=== PATIENT | male | born 1985 | race Caucasian/White ===

== ENCOUNTER 2016-12-04 17:54 | Inpatient (IN) | payer OTHER ==
[~2016-12-04] VITALS: Ht 160 cm; Wt 45.9 kg
[2016-12-04 22:00] VITALS: BP 96/58; PULSE 78; RESP 18
[2016-12-04 23:00] VITALS: Ht 160 cm; Wt 45.9 kg
[2016-12-04] MEDS ORDERED: PSYLLIUM 28% PACKET PO PRN (23:30)
[2016-12-04] MEDS ORDERED: POLYETHYLENE GLYCOL 17 GM PACKET PO PRN (23:30)
[2016-12-04] MEDS ORDERED: TEMAZEPAM 7.5 MG CAP PO PRN (23:30)
[2016-12-04] MEDS ORDERED: MAGNESIUM HYDROXIDE 30ML CUP PO PRN (23:45)
[2016-12-04] MEDS ORDERED: ACETAMINOPHEN 325 MG TAB PO PRN (23:45)
[2016-12-04] MEDS ORDERED: SENNA/DOCUSATE NA (8.6MG/50MG) TAB PO PRN (23:45)
[2016-12-04] MEDS ORDERED: BISACODYL 10 MG SUPP PR PRN (23:45)
[2016-12-04] MEDS ORDERED: LEVALBUTEROL (NEB) 1.25 MG/0.5 ML AMP INH PRN (23:45)
[2016-12-04] MEDS: HYDROCODONE/APAP (5/325) TAB PO PRN (23:55)
[2016-12-04] MEDS: MEROPENEM 1 GM/100 ML (PMX) 100 ML IVPB SCH (23:57)
[2016-12-04] MEDS: SODIUM CHLORIDE 1 GM TAB PO SCH (23:58)
[2016-12-04] MEDS: GABAPENTIN 300 MG CAP PO SCH (23:58)
[2016-12-05 01:11] LABS: ADD UMIC YES; URINE BILIRUBIN (Dip) NEGATIVE (NEGATIVE); URINE BLOOD (Dip) TRACE (NEGATIVE); URINE COLOR LT. YELLOW (YELLOW); URINE GLUCOSE (Dip) NEGATIVE (NEGATIVE); URINE KETONES (Dip) NEGATIVE (NEGATIVE); URINE LEUKOCYTE ESTERASE (Dip) NEGATIVE (NEGATIVE); URINE NITRITE (Dip) NEGATIVE (NEGATIVE); URINE TOTAL PROTEIN (Dip) NEGATIVE (NEGATIVE); URINE UROBILINOGEN (Dip) 0.2 E.U./dL (0.1-1.0)
[2016-12-05 01:33] LABS: SQUAMOUS EPITHELIAL CELL,UR RARE; URINE RBCS 0-2 /HPF (0)
[2016-12-05 06:37] LABS: ADD SCAN DIFF NO
[2016-12-05] MEDS: HYDROCODONE/APAP (5/325) TAB PO PRN ×2 (06:44→21:52)
[2016-12-05 06:46] LABS: HEMATOCRIT 30.7 % (42.0-52.0); HEMOGLOBIN 10.1 g/dl (14.0-18.0); MEAN CORPUSCULAR HEMOGLOBIN 29.8 pg (29.0-33.0); MEAN CORPUSCULAR HGB CONC 32.9 g/dl (32.0-37.0); MEAN CORPUSCULAR VOLUME 90.6 fl (82.0-101.0); MEAN PLATELET VOLUME 9.5 fl (7.4-10.4); PLATELET COUNT 875 10^3/UL (140-415); RED BLOOD COUNT 3.39 10^6/ul (4.70-6.10); RED CELL DISTRIBUTION WIDTH 13.1 % (11.5-14.5); WHITE BLOOD COUNT 7.1 10^3/ul (4.8-10.8)
[2016-12-05 07:00] LABS: ALBUMIN 2.8 g/dl (3.3-4.9)
[2016-12-05 07:01] LABS: POTASSIUM 4.1 mmol/L (3.5-5.1)
[2016-12-05 07:03] LABS: ALBUMIN/GLOBULIN RATIO 0.9; BILIRUBIN,INDIRECT 0.2 mg/dl (0-1.1); BILIRUBIN,TOTAL 0.2 mg/dl (0.2-1.3); CALCIUM 8.3 mg/dl (8.4-10.2); CREATININE 0.78 mg/dl (0.61-1.24); TOTAL PROTEIN 5.9 g/dl (6.1-8.1)
[2016-12-05 08:00] VITALS: BP 96/56; PULSE 82; RESP 18
[2016-12-05] MEDS: SODIUM CHLORIDE 1 GM TAB PO SCH ×3 (09:09→20:30)
[2016-12-05] MEDS: ENOXAPARIN 30 MG/0.3 ML SYG SC SCH ×3 (09:09→20:33)
[2016-12-05] MEDS: ASPIRIN 81 MG TAB PO SCH (09:09)
[2016-12-05] MEDS: GABAPENTIN 300 MG CAP PO SCH ×3 (09:09→20:30)
[2016-12-05] MEDS: MEROPENEM 1 GM/100 ML (PMX) 100 ML IVPB SCH ×2 (10:42→20:34)
[2016-12-05 10:45] LABS: BASOPHIL # 0.3 10^3/ul (0.0-0.1); EOSINOPHILS # 0.2 10^3/ul (0.0-0.5); LYMPHOCYTES # 1.9 10^3/ul (0.8-2.9); MONOCYTE # 0.9 10^3/ul (0.3-0.9); MYELOCYTES # 0.1; NEUTROPHIL # 3.6 10^3/ul (1.6-7.5)
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
[2016-12-05 20:00] VITALS: BP 101/56; RESP 18
[2016-12-06] MEDS: HYDROCODONE/APAP (5/325) TAB PO PRN ×3 (02:12→21:22)
[2016-12-06 08:00] VITALS: BP 92/57; RESP 18
[2016-12-06] MEDS ORDERED: BISACODYL 10 MG SUPP PR SCH (09:00)
[2016-12-06] MEDS: BISACODYL 10 MG SUPP PR SCH (09:00)
[2016-12-06] MEDS: ASPIRIN 81 MG TAB PO SCH (09:23)
[2016-12-06] MEDS: SODIUM CHLORIDE 1 GM TAB PO SCH ×3 (09:24→20:22)
[2016-12-06] MEDS: GABAPENTIN 300 MG CAP PO SCH ×3 (09:25→20:22)
[2016-12-06] MEDS: ENOXAPARIN 30 MG/0.3 ML SYG SC SCH ×2 (09:27→21:21)
[2016-12-06] MEDS: MEROPENEM 1 GM/100 ML (PMX) 100 ML IVPB SCH ×2 (10:09→20:22)
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
[2016-12-06 19:40] VITALS: BP 101/61; RESP 18
[2016-12-07] MEDS: HYDROCODONE/APAP (5/325) TAB PO PRN ×4 (01:21→21:16)
[2016-12-07 07:30] VITALS: BP 81/52; RESP 18
[2016-12-07] MEDS: ASPIRIN 81 MG TAB PO SCH (08:33)
[2016-12-07] MEDS: SODIUM CHLORIDE 1 GM TAB PO SCH ×3 (08:33→20:53)
[2016-12-07] MEDS: GABAPENTIN 300 MG CAP PO SCH ×3 (08:33→20:53)
[2016-12-07] MEDS: MEROPENEM 1 GM/100 ML (PMX) 100 ML IVPB SCH ×2 (08:33→21:36)
[2016-12-07] MEDS: BISACODYL 10 MG SUPP PR SCH (08:33)
[2016-12-07] MEDS: ENOXAPARIN 30 MG/0.3 ML SYG SC SCH ×2 (08:44→20:57)
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
[2016-12-07 20:00] VITALS: BP 98/53; RESP 18
[2016-12-08] MEDS: HYDROCODONE/APAP (5/325) TAB PO PRN ×4 (01:33→21:47)
[2016-12-08] MEDS: BISACODYL 10 MG SUPP PR SCH (09:50)
[2016-12-08] MEDS: GABAPENTIN 300 MG CAP PO SCH ×3 (09:50→21:43)
[2016-12-08] MEDS: SODIUM CHLORIDE 1 GM TAB PO SCH ×3 (09:50→21:43)
[2016-12-08] MEDS: ASPIRIN 81 MG TAB PO SCH (09:50)
[2016-12-08] MEDS: ENOXAPARIN 30 MG/0.3 ML SYG SC SCH ×2 (10:01→21:45)
[2016-12-08] MEDS: MEROPENEM 1 GM/100 ML (PMX) 100 ML IVPB SCH ×2 (10:09→21:43)
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
[2016-12-08 20:00] VITALS: BP 94/60; RESP 18
[2016-12-09] MEDS: HYDROCODONE/APAP (5/325) TAB PO PRN ×2 (02:21→21:40)
[2016-12-09 07:30] VITALS: BP 103/64; RESP 18
[2016-12-09] MEDS: BISACODYL 10 MG SUPP PR SCH ×2 (09:00→14:07)
[2016-12-09] MEDS: MEROPENEM 1 GM/100 ML (PMX) 100 ML IVPB SCH (09:14)
[2016-12-09] MEDS: SODIUM CHLORIDE 1 GM TAB PO SCH ×3 (09:15→21:38)
[2016-12-09] MEDS: GABAPENTIN 300 MG CAP PO SCH (09:15)
[2016-12-09] MEDS: ASPIRIN 81 MG TAB PO SCH (09:18)
[2016-12-09] MEDS: ENOXAPARIN 30 MG/0.3 ML SYG SC SCH ×2 (09:18→21:40)
[2016-12-09] MEDS: GABAPENTIN 400 MG CAP PO SCH ×2 (12:12→21:38)
[2016-12-09 20:45] VITALS: BP 101/64; RESP 19
[2016-12-10] MEDS: HYDROCODONE/APAP (5/325) TAB PO PRN ×2 (02:55→22:36)
[2016-12-10 07:30] VITALS: BP 86/54; RESP 18
[2016-12-10 07:59] LABS: ADD SCAN DIFF NO
[2016-12-10 08:04] LABS: BASOPHIL # 0.1 10^3/ul (0.0-0.1); BASOPHILS % 1.3 % (0.0-2.0); EOSINOPHILS # 0.1 10^3/ul (0.0-0.5); EOSINOPHILS % 1.3 % (0.0-7.0); HEMATOCRIT 32.5 % (42.0-52.0); HEMOGLOBIN 10.4 g/dl (14.0-18.0); LYMPHOCYTES # 2.6 10^3/ul (0.8-2.9); LYMPHOCYTES % 38.6 % (15.0-51.0); MEAN CORPUSCULAR HEMOGLOBIN 29.4 pg (29.0-33.0); MEAN CORPUSCULAR VOLUME 91.8 fl (82.0-101.0); MEAN PLATELET VOLUME 9.4 fl (7.4-10.4); MONOCYTE # 0.7 10^3/ul (0.3-0.9); MONOCYTES % 9.6 % (0.0-11.0); NEUTROPHIL # 3.3 10^3/ul (1.6-7.5); NEUTROPHILS % 48.6 % (39.0-77.0); PLATELET COUNT 676 10^3/UL (140-415); RED BLOOD COUNT 3.54 10^6/ul (4.70-6.10); RED CELL DISTRIBUTION WIDTH 13.1 % (11.5-14.5); WHITE BLOOD COUNT 6.8 10^3/ul (4.8-10.8)
[2016-12-10] MEDS: ASPIRIN 81 MG TAB PO SCH (09:13)
[2016-12-10] MEDS: GABAPENTIN 400 MG CAP PO SCH ×3 (09:13→20:57)
[2016-12-10] MEDS: BISACODYL 10 MG SUPP PR SCH (09:13)
[2016-12-10] MEDS: SODIUM CHLORIDE 1 GM TAB PO SCH ×3 (09:13→20:57)
[2016-12-10] MEDS: ENOXAPARIN 30 MG/0.3 ML SYG SC SCH ×2 (09:14→20:58)
--- NOTE | 2016-12-10 12:22 | CONS ---
Date/Time of Note Date/Time of Note DATE: 12/10/16 TIME: 12:20 Consult Date/Type/Reason Admit Date/Time Dec 04, 2016 at 20:42 Initial Consult Date Type of Consultation: internal medicine Objective Vital Signs Date Time Temp Pulse Resp B/P Pulse Ox O2 Delivery O2 Flow Rate FiO2 12/09/16 20:45 97.8 75 19 101/64 98 12/06/16 08:00 Room Air Intake and Output 12/09/16 12/09/16 12/10/16 15:00 23:00 07:00 Intake Total 100 ml 1510 ml Output Total 1700 ml 600 ml Balance 100 ml -190 ml -600 ml INTERDISCIPLINARY TEAM CONFERENCE BOWEL- neurogenic bowel BLADDER-neurogenic bladder with cath SKIN- healed sacral decub OT- DRESSING-mod BATHING-mod TOILETING-mod PT- BED MOBILITY-mod TRANSFERS-mod/min with slideboard W.C. MOBILITY-sba A/P- Interdisciplinary team conference held today. Please see interdisciplinary sheet. Working toward d.c. home with post discharge follow up of physical therapy, occupational therapy, and nursing when at modified independent at the wheelchair level, and gait activities tolerated. Reconference in one week. Results/Medications Result Diagram: 12/10/16 0610 Results 24 hrs Laboratory Tests Test 12/10/16 06:10 White Blood Count 6.8 Red Blood Count 3.54 L Hemoglobin 10.4 L Hematocrit 32.5 L Mean Corpuscular Volume 91.8 Mean Corpuscular Hemoglobin 29.4 Mean Corpuscular Hemoglobin Concent 32.0 Red Cell Distribution Width 13.1 Platelet Count 676 #H Mean Platelet Volume 9.4 Neutrophils % 48.6 Lymphocytes % 38.6 Monocytes % 9.6 Eosinophils % 1.3 Basophils % 1.3 Nucleated Red Blood Cells % 0.0 Neutrophils # 3.3 Lymphocytes # 2.6 Monocytes # 0.7 Eosinophils # 0.1 Basophils # 0.1 Nucleated Red Blood Cells # 0.0 Medications Current Medications Temazepam (Restoril) 7.5 mg HS PRN PO INSOMNIA; Start 12/04/16 at 23:30 Polyethylene Glycol (Miralax) 17 gm DAILY PRN PO CONSTIPATION; Start 12/04/16 at 23:30 Psyllium Hydrophilic Mucilloid (Metamucil) 1 pkt TID PRN PO CONSTIPATION; Start 12/04/16 at 23:30 Aspirin (Aspirin) 81 mg DAILY PO Last administered on 12/10/16 09:13; Admin Dose 81 MG; Start 12/05/16 at 09:00 Enoxaparin Sodium (Lovenox) 30 mg BID SC Last administered on 12/10/16 09:14; Admin Dose 30 MG; Start 12/04/16 at 23:30 Sodium Chloride (Nacl) 1 gm TID PO Last administered on 12/10/16 09:13; Admin Dose 1 GM; Start 12/04/16 at 23:30 Cyclobenzaprine HCl (Flexeril) 5 mg BID PRN PO MUSCLE SPASMS; Start 12/04/16 at 23:30 Acetaminophen (Tylenol Tab) 650 mg Q4H PRN PO PAIN AND OR ELEVATED TEMP/OCHOA; Start 12/04/16 at 23:45 Bisacodyl (Dulcolax Supp) 10 mg DAILY PRN [place] CONSTIPATION Last administered on 12/05/16 21:51; Admin Dose 10 MG; Start 12/04/16 at 23:45 Docusate Sodium (Colace) 250 mg BID PRN PO CONSTIPATION; Start 12/04/16 at 23: 45 Acetaminophen/ Hydrocodone Bitart ([place] (5/325)) 2 tab Q4H PRN PO SEVERE PAIN Last administered on 12/10/16 02:55; Admin Dose 2 TAB; Start 12/04/16 at 23:45 Magnesium Hydroxide (Milk Of Mag) 30 ml Q6H PRN PO CONSTIPATION; Start at 23:45 Senna/Docusate Sodium (Senokot-S) 2 tab HS PRN PO CONSTIPATION; Start 12/04/16 at 23:45 Bisacodyl (Dulcolax Supp) 10 mg DAILY [place] Last administered on 12/10/16 09:13; Admin Dose 10 MG; Start 12/06/16 at 09:00 Gabapentin (Neurontin) 400 mg TID PO Last administered on 12/10/16 09:13; Admin Dose 400 MG; Start 12/09/16 at 13:00 KEITH CLEMENS MD December 10, 2016 12:22 KEITH CLEMENS MD December 10, 2016 12:22
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
[2016-12-10 20:30] VITALS: BP 89/49; RESP 18
[2016-12-10 22:00] VITALS: BP 91/58
[2016-12-11] MEDS: HYDROCODONE/APAP (5/325) TAB PO PRN ×4 (02:44→22:22)
[2016-12-11 08:09] VITALS: BP 89/52; RESP 18
[2016-12-11] MEDS: ENOXAPARIN 30 MG/0.3 ML SYG SC SCH ×2 (08:55→20:50)
[2016-12-11] MEDS: SODIUM CHLORIDE 1 GM TAB PO SCH ×3 (08:55→20:49)
[2016-12-11] MEDS: ASPIRIN 81 MG TAB PO SCH (08:55)
[2016-12-11] MEDS: GABAPENTIN 400 MG CAP PO SCH ×3 (08:55→20:49)
[2016-12-11] MEDS: BISACODYL 10 MG SUPP PR SCH (09:47)
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
[2016-12-11 19:43] VITALS: BP 102/65; RESP 20
[2016-12-12] MEDS: HYDROCODONE/APAP (5/325) TAB PO PRN ×3 (02:31→22:02)
[2016-12-12 08:25] VITALS: BP 95/58; RESP 18
[2016-12-12] MEDS: ENOXAPARIN 30 MG/0.3 ML SYG SC SCH ×2 (08:36→20:49)
[2016-12-12] MEDS: ASPIRIN 81 MG TAB PO SCH (08:36)
[2016-12-12] MEDS: GABAPENTIN 400 MG CAP PO SCH ×3 (08:36→20:46)
[2016-12-12] MEDS: SODIUM CHLORIDE 1 GM TAB PO SCH ×3 (08:36→20:46)
[2016-12-12] MEDS: BISACODYL 10 MG SUPP PR SCH (08:36)
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
[2016-12-12] MEDS: CYCLOBENZAPRINE 10 MG TAB PO PRN (11:21)
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
[2016-12-12 20:00] VITALS: BP 107/61; RESP 18
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
[2016-12-13] MEDS: HYDROCODONE/APAP (5/325) TAB PO PRN ×5 (02:10→22:06)
[2016-12-13 07:30] VITALS: BP 83/48; RESP 18
[2016-12-13] MEDS: ENOXAPARIN 30 MG/0.3 ML SYG SC SCH ×2 (09:18→21:09)
[2016-12-13] MEDS: ASPIRIN 81 MG TAB PO SCH (09:33)
[2016-12-13] MEDS: GABAPENTIN 400 MG CAP PO SCH ×2 (09:34→12:17)
[2016-12-13] MEDS: SODIUM CHLORIDE 1 GM TAB PO SCH ×3 (09:34→21:04)
[2016-12-13] MEDS: BISACODYL 10 MG SUPP PR SCH ×2 (09:34→12:52)
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
[2016-12-13] MEDS: CYCLOBENZAPRINE 10 MG TAB PO PRN (12:21)
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
[2016-12-13] MEDS: GABAPENTIN 300 MG CAP PO SCH (21:05)
[2016-12-14] MEDS: HYDROCODONE/APAP (5/325) TAB PO PRN ×2 (02:11→20:45)
[2016-12-14] MEDS: SODIUM CHLORIDE 1 GM TAB PO SCH ×3 (09:18→20:44)
[2016-12-14] MEDS: GABAPENTIN 300 MG CAP PO SCH ×3 (09:18→20:44)
[2016-12-14] MEDS: BISACODYL 10 MG SUPP PR SCH (09:18)
[2016-12-14] MEDS: ASPIRIN 81 MG TAB PO SCH (09:18)
[2016-12-14] MEDS: ENOXAPARIN 30 MG/0.3 ML SYG SC SCH ×2 (09:20→20:46)
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
[2016-12-14] MEDS: PREGABALIN 50 MG CAP PO SCH ×2 (13:13→20:44)
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
[2016-12-14 20:00] VITALS: BP 98/59; RESP 18
[2016-12-15] MEDS: HYDROCODONE/APAP (5/325) TAB PO PRN ×4 (01:30→19:37)
[2016-12-15 07:45] VITALS: BP 76/44; RESP 18
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
[2016-12-15] MEDS: ASPIRIN 81 MG TAB PO SCH (10:10)
[2016-12-15] MEDS: SODIUM CHLORIDE 1 GM TAB PO SCH ×3 (10:10→20:48)
[2016-12-15] MEDS: GABAPENTIN 300 MG CAP PO SCH ×3 (10:11→20:48)
[2016-12-15] MEDS: PREGABALIN 50 MG CAP PO SCH ×2 (10:11→20:48)
[2016-12-15] MEDS: ENOXAPARIN 30 MG/0.3 ML SYG SC SCH ×2 (10:12→20:52)
[2016-12-15] MEDS: BISACODYL 10 MG SUPP PR SCH (10:14)
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
--- NOTE | 2016-12-15 13:39 | PN ---
DATE: 12/15/2016 SUBJECTIVE: The patient has a neurogenic bladder. He is paraplegic. The patient has urinary reten tion requiring straight catheterization. Last time he was catheterized earlier this morning for 300 and another time for another 300. OBJECTIVE: His temperature is 98.7, pulse is 62, respirations 18, blood pressure 76/44. PLAN: The urine culture did show enterococcus and was sensitive to vancomycin and Cipro. I did ord er a urine culture for him and it is still in process. For now, continue to do the straight cathete rization on him every 6 hours or earlier if the bladder scan shows over 600 mL. Dictated By: ADIN GODINEZ/HERNANDEZ Conf#: [id number] DID#: [id number]
[2016-12-15] MEDS: CYCLOBENZAPRINE 10 MG TAB PO PRN (18:41)
[2016-12-15 19:41] VITALS: BP 104/75; RESP 18
[2016-12-15] MEDS: BACLOFEN 10 MG TAB PO SCH (22:28)
[2016-12-15] MEDS: HYDROCODONE/APAP (10/325) TAB PO PRN (23:58)
[2016-12-16] MEDS: HYDROCODONE/APAP (10/325) TAB PO PRN ×3 (06:29→22:51)
[2016-12-16 07:12] LABS: ADD SCAN DIFF NO
[2016-12-16 07:16] LABS: BASOPHIL # 0.1 10^3/ul (0.0-0.1); BASOPHILS % 0.7 % (0.0-2.0); EOSINOPHILS # 0.2 10^3/ul (0.0-0.5); EOSINOPHILS % 3.3 % (0.0-7.0); HEMATOCRIT 35.3 % (42.0-52.0); HEMOGLOBIN 11.3 g/dl (14.0-18.0); LYMPHOCYTES # 2.7 10^3/ul (0.8-2.9); MEAN CORPUSCULAR HEMOGLOBIN 29.5 pg (29.0-33.0); MEAN CORPUSCULAR VOLUME 92.2 fl (82.0-101.0); MEAN PLATELET VOLUME 10.2 fl (7.4-10.4); MONOCYTE # 0.6 10^3/ul (0.3-0.9); NEUTROPHIL # 3.4 10^3/ul (1.6-7.5); NEUTROPHILS % 48.7 % (39.0-77.0); PLATELET COUNT 308 10^3/UL (140-415); RED BLOOD COUNT 3.83 10^6/ul (4.70-6.10); RED CELL DISTRIBUTION WIDTH 13.8 % (11.5-14.5)
[2016-12-16 07:30] VITALS: BP 93/54; RESP 18
[2016-12-16 07:33] LABS: CREATININE 0.77 mg/dl (0.61-1.24); MAGNESIUM 1.7 mg/dl (1.7-2.5); PHOSPHORUS 4.2 mg/dl (2.5-4.9)
[2016-12-16] MEDS: ENOXAPARIN 30 MG/0.3 ML SYG SC SCH ×2 (11:22→21:18)
[2016-12-16] MEDS: PREGABALIN 50 MG CAP PO SCH ×2 (11:22→21:15)
[2016-12-16] MEDS: BISACODYL 10 MG SUPP PR SCH (11:22)
[2016-12-16] MEDS: ASPIRIN 81 MG TAB PO SCH (11:22)
[2016-12-16] MEDS: GABAPENTIN 300 MG CAP PO SCH ×3 (11:22→21:15)
[2016-12-16] MEDS: SODIUM CHLORIDE 1 GM TAB PO SCH ×3 (11:24→21:15)
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
[2016-12-16] MEDS: CIPROFLOXACIN 500 MG TAB PO SCH (18:35)
[2016-12-16] MEDS: BACLOFEN 10 MG TAB PO SCH (21:16)
[2016-12-16 22:17] VITALS: BP 99/63; RESP 18
[2016-12-17] MEDS: HYDROCODONE/APAP (10/325) TAB PO PRN ×5 (02:55→22:51)
--- NOTE | 2016-12-17 03:35 | PN ---
DATE: 12/16/2016 SUBJECTIVE: Urinary retention and neurogenic bladder. The patient is paraplegic. OBJECTIVE: VITAL SIGNS: His temperature is 98.2, pulse 56, respiration 18, blood pressure 93/54. The patient is sitting on the edge of the bed, and he has not been able to urinate. The nurses have catheterized him today. The last time he was catheterized, they drained over 600 mL, and the last catheterization was 536 mL. The patient himself is being taught how to do the self-catheterization. According to the patient as well as the nurse who is taking care of him, he seems to be learning w ell how to do it. I encouraged him to try to do it himself while he is in the hospital so he could gain some practice before he is discharged. Dictated By: ADIN GODINEZ/HERNANDEZ Conf#: [id number] DID#: [id number]
[2016-12-17] MEDS: CIPROFLOXACIN 500 MG TAB PO SCH ×2 (05:46→18:58)
[2016-12-17 07:30] VITALS: BP 85/50; RESP 18
[2016-12-17 08:30] VITALS: BP 110/68
[2016-12-17] MEDS: ASPIRIN 81 MG TAB PO SCH (09:00)
[2016-12-17] MEDS: PREGABALIN 50 MG CAP PO SCH ×2 (10:11→21:07)
[2016-12-17] MEDS: SODIUM CHLORIDE 1 GM TAB PO SCH ×3 (10:11→21:07)
[2016-12-17] MEDS: BACLOFEN 10 MG TAB PO SCH ×3 (10:11→21:07)
[2016-12-17] MEDS: GABAPENTIN 300 MG CAP PO SCH ×3 (10:16→21:07)
[2016-12-17] MEDS: BISACODYL 10 MG SUPP PR SCH (10:16)
[2016-12-17] MEDS: ENOXAPARIN 30 MG/0.3 ML SYG SC SCH ×2 (10:18→21:21)
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
--- NOTE | 2016-12-17 13:31 | CONS ---
Date/Time of Note Date/Time of Note DATE: 12/17/16 TIME: 13:29 Consult Date/Type/Reason Admit Date/Time Dec 04, 2016 at 20:42 Type of Consultation: internal medicine Objective Vital Signs Date Time Temp Pulse Resp B/P Pulse Ox O2 Delivery O2 Flow Rate FiO2 12/17/16 08:30 110/68 12/16/16 22:17 97.8 73 18 98 Intake and Output 12/16/16 12/16/16 12/17/16 15:00 23:00 07:00 Intake Total 1100 ml 280 ml Output Total 550 ml 375 ml Balance 550 ml -95 ml INTERDISCIPLINARY TEAM CONFERENCE BOWEL- results with bowel program BLADDER-started to have some volitional voiding SKIN- healing decub OT- DRESSING-min BATHING-min TOILETING-min (max for supository) PT- BED MOBILITY-min/mod TRANSFERS-cga W.C. MOBILITY-sba A/P- Interdisciplinary team conference held today. Please see interdisciplinary sheet. Working toward d.c. on 12/26 with post discharge follow up of physical therapy, occupational therapy. Results/Medications Result Diagram: 12/16/16 0610 12/16/16 0610 Medications Current Medications Temazepam (Restoril) 7.5 mg HS PRN PO INSOMNIA; Start 12/04/16 at 23:30 Polyethylene Glycol (Miralax) 17 gm DAILY PRN PO CONSTIPATION; Start 12/04/16 at 23:30 Psyllium Hydrophilic Mucilloid (Metamucil) 1 pkt TID PRN PO CONSTIPATION; Start 12/04/16 at 23:30 Aspirin (Aspirin) 81 mg DAILY PO Last administered on 12/16/16 11:22; Admin Dose 81 MG; Start 12/05/16 at 09:00 Enoxaparin Sodium (Lovenox) 30 mg BID SC Last administered on 12/17/16 10:18; Admin Dose 30 MG; Start 12/04/16 at 23:30 Sodium Chloride (Nacl) 1 gm TID PO Last administered on 12/17/16 10:11; Admin Dose 1 GM; Start 12/04/16 at 23:30 Acetaminophen (Tylenol Tab) 650 mg Q4H PRN PO PAIN AND OR ELEVATED TEMP/OCHOA; Start 12/04/16 at 23:45 Bisacodyl (Dulcolax Supp) 10 mg DAILY PRN [place] CONSTIPATION Last administered on 12/05/16 21:51; Admin Dose 10 MG; Start 12/04/16 at 23:45 Docusate Sodium (Colace) 250 mg BID PRN PO CONSTIPATION; Start 12/04/16 at 23: 45 Magnesium Hydroxide (Milk Of Mag) 30 ml Q6H PRN PO CONSTIPATION; Start at 23:45 Senna/Docusate Sodium (Senokot-S) 2 tab HS PRN PO CONSTIPATION; Start 12/04/16 at 23:45 Bisacodyl (Dulcolax Supp) 10 mg DAILY [place] Last administered on 12/17/16 10:16; Admin Dose 10 MG; Start 12/06/16 at 09:00 Gabapentin (Neurontin) 600 mg TID PO Last administered on 12/17/16 10:16; Admin Dose 600 MG; Start 12/13/16 at 21:00 Pregabalin (Lyrica) 50 mg BID PO Last administered on 12/17/16 10:11; Admin Dose 50 MG; Start 12/14/16 at 10:30 Baclofen (Lioresal) 5 mg TID PO Last administered on 12/17/16 10:11; Admin Dose 5 MG; Start 12/16/16 at 22:00 Acetaminophen/ Hydrocodone Bitart ([place] (10/325)) 2 tab Q4H PRN PO PAIN Last administered on 12/17/16 10:23; Admin Dose 2 TAB; Start 12/15/16 at 22:00 Ciprofloxacin (Cipro) 500 mg BID@18 PO Last administered on 12/17/16 05:46; Admin Dose 500 MG; Start 12/16/16 at 18:00 KEITH CLEMENS MD December 17, 2016 13:31
[2016-12-17 19:44] VITALS: BP 120/75; RESP 18
[2016-12-17] MEDS ORDERED: TAMSULOSIN (SR) 0.4 MG CAP PO SCH (21:00)
[2016-12-17] MEDS: TRIMETHOPRIM/SULFAMETHOX (DS) TAB PO SCH (21:10)
[2016-12-18] MEDS: HYDROCODONE/APAP (10/325) TAB PO PRN ×3 (02:59→21:31)
[2016-12-18] MEDS: CIPROFLOXACIN 500 MG TAB PO SCH ×2 (06:27→18:41)
[2016-12-18 07:40] LABS: ADD SCAN DIFF NO; BASOPHIL # 0.1 10^3/ul (0.0-0.1); BASOPHILS % 0.8 % (0.0-2.0); EOSINOPHILS # 0.3 10^3/ul (0.0-0.5); EOSINOPHILS % 3.3 % (0.0-7.0); HEMATOCRIT 33.4 % (42.0-52.0); LYMPHOCYTES # 2.7 10^3/ul (0.8-2.9); LYMPHOCYTES % 30.3 % (15.0-51.0); MEAN CORPUSCULAR HEMOGLOBIN 29.9 pg (29.0-33.0); MEAN CORPUSCULAR HGB CONC 32.9 g/dl (32.0-37.0); MEAN CORPUSCULAR VOLUME 90.8 fl (82.0-101.0); MEAN PLATELET VOLUME 10.3 fl (7.4-10.4); MONOCYTE # 0.7 10^3/ul (0.3-0.9); MONOCYTES % 7.4 % (0.0-11.0); NEUTROPHIL # 5.2 10^3/ul (1.6-7.5); PLATELET COUNT 264 10^3/UL (140-415); RED BLOOD COUNT 3.68 10^6/ul (4.70-6.10); RED CELL DISTRIBUTION WIDTH 13.8 % (11.5-14.5); WHITE BLOOD COUNT 8.9 10^3/ul (4.8-10.8)
[2016-12-18 08:07] LABS: ALBUMIN 3.2 g/dl (3.3-4.9); ALBUMIN/GLOBULIN RATIO 1.1; BILIRUBIN,INDIRECT 0.2 mg/dl (0-1.1); BILIRUBIN,TOTAL 0.2 mg/dl (0.2-1.3); CALCIUM 8.8 mg/dl (8.4-10.2); CREATININE 0.84 mg/dl (0.61-1.24); TOTAL PROTEIN 6.1 g/dl (6.1-8.1)
[2016-12-18] MEDS: TRIMETHOPRIM/SULFAMETHOX (DS) TAB PO SCH ×2 (09:06→20:34)
[2016-12-18] MEDS: BISACODYL 10 MG SUPP PR SCH (09:07)
[2016-12-18] MEDS: PREGABALIN 50 MG CAP PO SCH ×2 (09:07→20:34)
[2016-12-18] MEDS: ASPIRIN 81 MG TAB PO SCH (09:07)
[2016-12-18] MEDS: GABAPENTIN 300 MG CAP PO SCH ×3 (09:07→20:35)
[2016-12-18] MEDS: SODIUM CHLORIDE 1 GM TAB PO SCH ×3 (09:07→20:34)
[2016-12-18] MEDS: BACLOFEN 10 MG TAB PO SCH ×3 (09:07→20:36)
[2016-12-18] MEDS: ENOXAPARIN 30 MG/0.3 ML SYG SC SCH ×2 (09:08→20:43)
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
[2016-12-18 18:26] VITALS: BP 98/63
[2016-12-18] MEDS: DOCUSATE SODIUM 250 MG CAP PO PRN (20:35)
[2016-12-18] MEDS: oxyCODONE (CR) 10 MG TAB [oxyCONTIN] PO SCH (20:36)
[2016-12-18 20:45] VITALS: BP 99/63; RESP 18
[2016-12-19] MEDS: HYDROCODONE/APAP (10/325) TAB PO PRN ×3 (01:40→22:38)
--- NOTE | 2016-12-19 02:18 | PN ---
DATE: 12/18/2016 SUBJECTIVE: The patient has a neurogenic bladder with urinary retention. He was sleepy and he stat es that since they gave him the medications he has been tired and sleepy and basically he got Baclof en and Neurontin. However, the patient did void once today and according to the nursing he did urin ate about 150 mL, but his postvoid residual was 550, so he was straight catheterized and the patient has learned himself how to do the self-catheterization and he is doing well. VITAL SIGNS: His temperature is 97.7. His pulse is 73, respiration 18, blood pressure 120/75. LABORATORY DATA: CBC shows a white count of 8.9, hemoglobin 11.0, hematocrit 33.4. BUN is 17, crea tinine 0.84. Electrolytes are normal. The urine culture from 12/15/2016 did show E. coli and Enter ococcus species and one is sensitive to Cipro, the other one is sensitive to trimethoprim sulfa, so the patient is on both of them. PLAN: To continue the in and out cath and check his postvoid residual and continue the antibiotics. Dictated By: ADIN COLES MD BB/HERNANDEZ Conf#: [id number] DID#: [id number] CC: ADIN COLES MD; KEITH CLEMENS MD;*End*
[2016-12-19] MEDS: CIPROFLOXACIN 500 MG TAB PO SCH ×2 (07:00→18:42)
[2016-12-19 07:31] VITALS: BP 84/48; RESP 18
[2016-12-19] MEDS: GABAPENTIN 300 MG CAP PO SCH ×3 (08:48→20:39)
[2016-12-19] MEDS: SODIUM CHLORIDE 1 GM TAB PO SCH ×3 (08:48→20:40)
[2016-12-19] MEDS: ENOXAPARIN 30 MG/0.3 ML SYG SC SCH ×2 (08:48→20:46)
[2016-12-19] MEDS: ASPIRIN 81 MG TAB PO SCH (08:48)
[2016-12-19] MEDS: oxyCODONE (CR) 10 MG TAB [oxyCONTIN] PO SCH ×2 (08:49→20:40)
[2016-12-19] MEDS: TRIMETHOPRIM/SULFAMETHOX (DS) TAB PO SCH ×2 (08:49→20:39)
[2016-12-19] MEDS: BISACODYL 10 MG SUPP PR SCH (08:49)
[2016-12-19] MEDS: BACLOFEN 10 MG TAB PO SCH ×3 (08:49→20:49)
[2016-12-19] MEDS: PREGABALIN 50 MG CAP PO SCH ×2 (09:28→20:49)
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
[2016-12-19 20:00] VITALS: BP 95/63; RESP 18
[2016-12-20] MEDS: CIPROFLOXACIN 500 MG TAB PO SCH ×2 (06:07→17:33)
[2016-12-20 06:25] VITALS: BP 87/50
[2016-12-20 06:30] VITALS: BP 90/56
[2016-12-20 07:30] VITALS: BP 98/63; RESP 18
[2016-12-20 08:14] LABS: CREATININE 0.88 mg/dl (0.61-1.24)
[2016-12-20] MEDS: oxyCODONE (CR) 10 MG TAB [oxyCONTIN] PO SCH ×2 (09:00→09:12)
[2016-12-20] MEDS: ASPIRIN 81 MG TAB PO SCH (09:00)
[2016-12-20] MEDS: PREGABALIN 50 MG CAP PO SCH ×2 (09:12→21:27)
[2016-12-20] MEDS: TRIMETHOPRIM/SULFAMETHOX (DS) TAB PO SCH ×2 (09:12→21:26)
[2016-12-20] MEDS: SODIUM CHLORIDE 1 GM TAB PO SCH ×3 (09:12→21:26)
[2016-12-20] MEDS: GABAPENTIN 300 MG CAP PO SCH ×3 (09:12→21:26)
[2016-12-20] MEDS: BISACODYL 10 MG SUPP PR SCH (09:13)
[2016-12-20] MEDS: ENOXAPARIN 30 MG/0.3 ML SYG SC SCH ×2 (09:19→21:28)
[2016-12-20 09:40] VITALS: BP 95/62; RESP 18
--- NOTE | 2016-12-20 10:27 | RADRPT ---
PROCEDURE: XR Abdomen. CLINICAL INDICATION: Abdomen pain. Constipation. TECHNIQUE: AP supine abdomen x-ray. COMPARISON: None. FINDINGS: The bowel gas pattern is normal with no evidence of obstruction. There is a large amount of stool i n the colon consistent with constipation. There is a 0.8 cm calcification or density overlying the right upper quadrant of the abdomen. There are no abnormal calcifications overlying the urinary tracts. The osseus structures are unremarkable. IMPRESSION: 1. No evidence of obstruction. 2. Constipation. 3. Calcification or density overlying the right upper quadrant of the abdomen measuring 0.8 cm. Th is may be inside the patient or outside the patient. 4. Otherwise unremarkable study. RPTAT: QQ .Rik Keller MD, MD Date Time Electronically viewed and signed by .Rik Keller MD, on 12/20/2016 10:26 .R/
[2016-12-20] MEDS: HYDROCODONE/APAP (10/325) TAB PO PRN ×3 (11:21→23:08)
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
[2016-12-20] MEDS: BACLOFEN 10 MG TAB PO SCH ×2 (11:57→21:27)
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
[2016-12-20 19:46] VITALS: BP 90/54; RESP 17
[2016-12-20 23:15] VITALS: BP 96/60; PULSE 82; RESP 18
--- NOTE | 2016-12-20 23:56 | PN ---
DATE: 12/20/2016 SUBJECTIVE: The patient has paraplegia, urinary retention secondary to the neurogenic bladder. The patient states that he did void, but a small amount, yet the catheterization after that yielded a l arge amount of urine. OBJECTIVE VITAL SIGNS: His temperature is 97.4, pulse is 66, respirations 17, blood pressure 90/54. ABDOMEN: Soft. The bladder is not distended. LABORATORY DATA: BUN is 17, creatinine 0.88, sodium 134, potassium 4.0, chloride 103, CO2 of 26. T he patient was catheterized 3 times today, and the amount drained was 550, then 340, then 550 mL. IMPRESSION: Neurogenic bladder with urinary retention secondary to the paraplegia that he has. PLAN: The patient has learned how to do self-catheterization, and he will continue to do that. Hop efully, his neurologic condition will improve to where he may be able to urinate adequately on his o wn without the need for catheterization, but for now, he needs to continue doing the intermittent se lf-catheterization. Dictated By: ADIN GODINEZ/HERNANDEZ Conf#: [id number] DID#: [id number]
[2016-12-21] MEDS: HYDROCODONE/APAP (10/325) TAB PO PRN ×5 (03:27→23:12)
[2016-12-21] MEDS: CIPROFLOXACIN 500 MG TAB PO SCH ×2 (06:36→18:24)
[2016-12-21 07:56] VITALS: BP 82/52; RESP 18
[2016-12-21] MEDS: DOCUSATE SODIUM 250 MG CAP PO PRN ×2 (09:19→20:05)
[2016-12-21] MEDS: GABAPENTIN 300 MG CAP PO SCH ×3 (09:19→20:05)
[2016-12-21] MEDS: ASPIRIN 81 MG TAB PO SCH (09:19)
[2016-12-21] MEDS: BACLOFEN 10 MG TAB PO SCH ×2 (09:19→20:06)
[2016-12-21] MEDS: TRIMETHOPRIM/SULFAMETHOX (DS) TAB PO SCH ×2 (09:19→20:05)
[2016-12-21] MEDS: SODIUM CHLORIDE 1 GM TAB PO SCH ×2 (09:20→12:43)
[2016-12-21] MEDS: PREGABALIN 50 MG CAP PO SCH ×2 (09:20→20:05)
[2016-12-21] MEDS: BISACODYL 10 MG SUPP PR SCH (09:20)
[2016-12-21] MEDS: ENOXAPARIN 30 MG/0.3 ML SYG SC SCH ×2 (09:25→20:14)
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
[2016-12-21 20:19] VITALS: BP 98/50; RESP 18
[2016-12-22] MEDS: HYDROCODONE/APAP (10/325) TAB PO PRN ×4 (03:21→13:08)
[2016-12-22] MEDS: CIPROFLOXACIN 500 MG TAB PO SCH (07:03)
[2016-12-22 07:45] VITALS: BP 94/57; PULSE 64; RESP 20
[2016-12-22] MEDS: PREGABALIN 50 MG CAP PO SCH (10:25)
[2016-12-22] MEDS: GABAPENTIN 300 MG CAP PO SCH ×2 (10:25→13:05)
[2016-12-22] MEDS: ASPIRIN 81 MG TAB PO SCH (10:25)
[2016-12-22] MEDS: TRIMETHOPRIM/SULFAMETHOX (DS) TAB PO SCH (10:25)
[2016-12-22] MEDS: BACLOFEN 10 MG TAB PO SCH (10:25)
[2016-12-22] MEDS: BISACODYL 10 MG SUPP PR SCH (10:26)
[2016-12-22] MEDS: ENOXAPARIN 30 MG/0.3 ML SYG SC SCH (10:34)
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
== END 2016-12-22 13:15 | disposition home or self-care (01) | DRG 949 ==
LOC: VRC 20:42
PROVIDERS: ADMIT Physical Medicine & Rehabilitation; ATTEND Internal Medicine Pulmonary Disease
DX: S34.121 Incomplete lesion of L1 level of lumbar spinal cord (principal); G82.22 Paraplegia, incomplete; K59.2 Neurogenic bowel, not elsewhere classified; N31.9 Neuromuscular dysfunction of bladder, unspecified; G62.9 Polyneuropathy, unspecified; K91.3 Postprocedural intestinal obstruction; W34.00XD Accidental discharge from unspecified firearms or gun, subsequent encounter; B95.2 Enterococcus as the cause of diseases classified elsewhere; F06.31 Mood disorder due to known physiological condition with depressive features
CPT/HCPCS: 74000; 80048; 80053; 81001; 81003; 83735; 84100; 85025; 87081; 87086; 97110; 97112; 97116; 97150; 97163; 97167; 97530; 97535; 97542; A4310; J1650; J2185